=== PATIENT | male | born 1990 | race Caucasian/White ===

== ENCOUNTER 2016-07-27 20:58 | Emergency (ER) | payer BC, OTHER ==
[2016-07-27 21:53] VITALS: BP 144/84
--- NOTE | 2016-07-27 22:06 | UC ---
Syncope/New Syncope HPI - HPI Summary HPI Summary: 25 yo male has been ill x 1 week with cough and congestion no f/c no n/v/d has not slept much studying for exam today he missed breakfast he had a coughing spell and got up quick from his desk got up quickly and passed out striking his forehead LOC then slept for a while unsure how long he was out feels fine now fore head hematoma no tongue lac no incontinence no preceding palpitations or CP needs a note for test he missed - History Of Current Complaint Chief Complaint: UCHeadInjury Stated Complaint: FAINTED Time Seen by Provider: 07/27/16 21:56 Hx Obtained From: Patient Onset/Duration: Sudden Onset Activity At Onset: At Rest Timing: Constant Frequency: Episodes x___ - 1, Episodes Lasting ____ (in Mins/Days/Weeks/Years) - ? Context: Unwitnessed Associated Head Trauma: Yes Pain Intensity: 1 Pain Scale Used: 0-10 Numeric Aggravating Factor(s): Nothing Alleviating Factor(s): Nothing, Spontaneous Resolution Associated Signs And Symptoms: Positive: Headache - 04/30. Negative: AMS, Chest Pain, Decreased Oral Intake, Diarrhea, GI Blood Loss, Head Trauma (Remote), Lightheadedness, Numbness, Palpitations, Seizure, Shortness Of Breath - Allergies/Home Medications Allergies/Adverse Reactions: Allergies Allergy/AdvReac Type Severity Reaction Status Date / Time No Known Allergies Allergy Verified 07/27/16 21:53 Home Medications: Home Medications NK [No Home Medications Reported] 07/27/16 [History Confirmed 07/27/16] PMH/Surg Hx/FS Hx/Imm Hx Previously Healthy: Yes Endocrine History Of: Denies: Diabetes, Thyroid Disease Cardiovascular History Of: Denies: Cardiac Disorders, Hypertension Respiratory History Of: Denies: COPD, Asthma GI/ History Of: Denies: Ulcer - Surgical History Surgical History: None - Family History Known Family History: Positive: Hypertension - Social History Alcohol Use: Occasionally Substance Use Type: None Smoking Status (MU): Never Smoked Tobacco Review of Systems Constitutional: Negative Skin: Bruising Eyes: Negative ENT: Nasal Discharge Respiratory: Cough Cardiovascular: Negative Gastrointestinal: Negative Genitourinary: Negative Motor: Negative Neurovascular: Negative Musculoskeletal: Negative Neurological: Negative Psychological: Negative All Other Systems Reviewed And Are Negative: Yes Physical Exam Triage Information Reviewed: Yes Appearance: Well-Appearing, No Pain Distress, Well-Nourished Vital Signs: Initial Vital Signs Temp 99.0 F 07/27/16 21:47 Pulse 89 07/27/16 21:47 Resp 18 07/27/16 21:47 BP 144/84 07/27/16 21:47 Pulse Ox 99 07/27/16 21:47 Vital Signs Reviewed: Yes Eyes: Positive: Conjunctiva Clear, Other: - perrl/eomi, fundi benign ENT Exam: Other - forehead hematoma ENT: Positive: Hearing grossly normal, Pharynx normal, Nasal congestion, Nasal drainage, TMs normal. Negative: Tonsillar exudate, Trismus, Muffled/hoarse voice Neck: Positive: Supple, Nontender, No Lymphadenopathy Respiratory: Positive: Lungs clear, Normal breath sounds, No respiratory distress, No accessory muscle use Cardiovascular: Positive: RRR, No Murmur, Pulses Normal Abdomen Description: Positive: Nontender, No Organomegaly Musculoskeletal: Positive: ROM Intact, No Edema Neurological: Positive: Alert, Muscle Tone Normal, Other: - cgx 15/15, normal gait, dtrs symmetrical. Negative: Fatigued Psychological Exam: Normal Psychological: Positive: Normal Response To Family Skin Exam: Normal UC Physical Exam Vital Signs On Initial Exam: Initial Vitals Temp Pulse Resp BP Pulse Ox 99.0 F 89 18 144/84 99 07/27/16 21:47 07/27/16 21:47 07/27/16 21:47 07/27/16 21:47 07/27/16 21:47 Syncope Course/Dx - Differential Dx/Diagnosis Provider Diagnoses: syncopal episode. forehead hematoma Discharge - Discharge Plan Condition: Stable Disposition: HOME Patient Education Materials: Syncope (ED) Forms: *Gen. Provider Communication Referrals: Desiree So MD [Medical Doctor] - 2 Weeks (recheck in 2-3 days ) Additional Instructions: rest fluids tylenol or advil ice fluids don't miss any meals
== END 2016-07-27 22:00 | disposition home or self-care (01) ==
LOC: UCEAST 20:58
DX: S00.83XA Contusion of other part of head, initial encounter (principal); R55 Syncope and collapse; W18.39XA Other fall on same level, initial encounter
CPT/HCPCS: 99201; G0463